=== PATIENT | male | born 1935 | race Caucasian/White ===

== ENCOUNTER 2017-12-09 12:08 | Emergency (ER) | payer OTHER, BC ==
[~2017-12-09] VITALS: Ht 177.8 cm; Wt 95.2 kg
[~2017-12-09 12:08] MED LIST: ALPRAZOLAM0.5 MG PO; VYTORIN1 TA1 PO; XALOS OU; ZESTRIL20 MG PO; [UNRECOGNIZED DRUG - OTHER] OP
[2017-12-09 12:14] VITALS: BP 152/62
== END 2017-12-09 12:55 | disposition home or self-care (01) ==
LOC: ED 12:08
DX: S29.012A Strain of muscle and tendon of back wall of thorax, initial encounter (principal); S50.312A Abrasion of left elbow, initial encounter; I10 Essential (primary) hypertension; V49.9XXA Car occupant (driver) (passenger) injured in unspecified traffic accident, initial encounter; Y93.73 Activity, racquet and hand sports; Y92.89 Other specified places as the place of occurrence of the external cause; Y99.8 Other external cause status